=== PATIENT | male | born 1980 | race Caucasian/White ===

== ENCOUNTER 2018-04-16 13:08 | Emergency (ER) | payer MEDICAID ==
[2018-04-16] MEDS ORDERED: ONDANSETRON 4 MG/2 ML VIAL IVP ONE (13:23)
[2018-04-16] MEDS ORDERED: NS 1,000 ML IV ONE (13:23)
[2018-04-16] MEDS ORDERED: KETOROLAC 30 MG/1 ML SDV IVP ONE (13:23)
--- NOTE | 2018-04-16 13:27 | EDPHY ---
H & P Stated Complaint: abd pain Source: Patient Exam Limitations: No limitations - Personal History Current Tetanus/Diphtheria Vaccine: Yes - Medical/Surgical History Hx Asthma: No Hx Chronic Respiratory Disease: No Hx Diabetes: No Hx Cardiac Disease: No Hx Renal Disease: No Hx Cirrhosis: No Hx Alcoholism: No Hx HIV/AIDS: No Hx Splenectomy or Spleen Trauma: No - Family History Significant Family History: No pertinent family hx - Social History Smoking Status: Former smoker Alcohol Use: Sober Drug Use: None Time Seen by Provider: 04/16/18 13:15 HPI/ROS: CHIEF COMPLAINT: Right lower quadrant pain HISTORY OF PRESENT ILLNESS: The patient is a 38-year-old man who is here with his partner complaining of right lower quadrant pain that he noticed when he woke from sleep at 6:00 a.m. This morning. He states that it occasionally radiates to his anterior thigh as well. He states that yesterday he drove 6 her miles in a car and at that time had some weird sensation in his testicles like his underwear was riding of but was not. He does not have any testicular pain or numbness today. No back pain. No CVA pain. The pain is been somewhat constant. He tried to eat lunch but that he got nauseous. He states that he thought that he may be constipated so that he performed a "douche". Severity: Moderate Modifying factors: None REVIEW OF SYSTEMS: Constitutional: denies: chills, fever, recent illness, recent injury EENTM: denies: blurred vision, double vision, nose congestion Respiratory: denies: cough, shortness of breath Cardiac: denies: chest pain, irregular heart rate, lightheadedness, palpitations Gastrointestinal/Abdominal: See HPI denies: diarrhea, nausea, vomiting, blood streaked stools Genitourinary: denies: dysuria, frequency, hematuria, pain Musculoskeletal: denies: joint pain, muscle pain Skin: denies: lesions, rash, jaundice, bruising Neurological: denies: headache, numbness, paresthesia, tingling, dizziness, weakness Hematologic/Lymphatic: denies: blood clots, easy bleeding, easy bruising Immunologic/allergic: denies: HIV/AIDS, transplant 10 systems reviewed and negative except as noted EXAM: GENERAL: Well-appearing, well-nourished and in no acute distress. HEAD: Atraumatic, normocephalic. EYES: Pupils equal round and reactive to light, extraocular movements intact, sclera anicteric, conjunctiva are normal. ENT: TMs normal, nares patent, oropharynx clear without exudates. Moist mucous membranes. NECK: Normal range of motion, supple without lymphadenopathy or JVD. LUNGS: Breath sounds clear to auscultation bilaterally and equal. No wheezes rales or rhonchi. HEART: Regular rate and rhythm without murmurs, rubs or gallops. ABDOMEN: Soft, nontender, normoactive bowel sounds. No guarding, no rebound. No masses appreciated. : Normal testicular exam, no tenderness, no swelling, no palpable hernia. No discharge. BACK: No CVA tenderness, no spinal tenderness, step-offs or deformities EXTREMITIES: Normal range of motion, no pitting or edema. No clubbing or cyanosis. NEUROLOGICAL: Cranial nerves II through XII grossly intact. Normal speech, normal gait. 5/5 strength, normal movement in all extremities, normal sensation , normal reflexes PSYCH: Normal mood, normal affect. SKIN: Warm, dry, normal turgor, no visible rashes or lesions. (Gabriel Michael) Constitutional: Initial Vital Signs Temperature (C) 36.8 C 04/16/18 13:11 Heart Rate 95 04/16/18 13:11 Respiratory Rate 16 04/16/18 13:11 Blood Pressure 140/120 H 04/16/18 13:11 O2 Sat (%) 96 04/16/18 13:11 O2 Delivery Mode Room Air Allergies/Adverse Reactions: No Known Allergies Allergy (Unverified 04/16/18 13:11) Home Medications: Medication Instructions Recorded Amoxicillin/Clavulanate Pot 875 mg PO BID #14 tab 04/16/18 [Augmentin 875 MG TAB (*)] Herbals/Supplements -Info Only 1 ea PO DAILY 04/16/18 Nexium 20 mg PO DAILY 04/16/18 Medical Decision Making - Diagnostics Imaging: Discussed imaging studies w/ call or contact centre manager Radiologist - Diagnostics Imaging Results: Imaging Impressions Abdomen CT 04/16/18 13:23 Impression: 1. Consistent with early appendicitis 2. Nonobstructive solitary right nephrolith. Results discussed with Dr. Michael at 2:56 PM. General information for patients regarding this examination can be found at [email or web address]. If you have questions or comments about this report, please contact me at [phone] (hospital) or [phone] (cell). ED Course/Re-evaluation: I discussed the case with Dr. Parrish who will come to evaluate the patient. I discussed the case with the patient who is concerned. Will plan on admission and surgery. (Gabriel Michael) 1172: Dr. Parrish with General Surgery, has seen and evaluated the patient, does not feel this is acute appendicitis, Would like the patient to be discharged home. Dr. Parrish discussed his work up and ct imaging, he discussed with the patient about return precautions. Dr. Parrish's request patient to get Augmentin Rx Return precautions extensively discussed. Patient understands. Recommend close follow up and return if worsening abdominal pain, fever, vomiting. Close follow up with him tomorrow. Patient understands to return if worsening pain/fever/ vomiting/not doing well. (Jair Gomez) Differential Diagnosis: Partial list of the Differential diagnosis considered include but were not limited to; appendicitis, kidney stone, urinary tract infection, constipation and although unlikely based on the history and physical exam, I also considered perforation, ischemia. (Gabriel Michael) - Data Points Laboratory Results: Laboratory Results 04/16/18 13:25 04/16/18 13:25 04/16/18 04/16/18 04/16/18 13:40 13:25 13:25 WBC 11.23 10^3/uL H 10^3/uL (3.80-9.50) RBC 5.64 10^6/uL 10^6/uL (4.40-6.38) Hgb 15.6 g/dL g/dL (13.7-17.5) Hct 45.4 % % (40.0-51.0) MCV 80.5 fL L fL (81.5-99.8) MCH 27.7 pg L pg (27.9-34.1) MCHC 34.4 g/dL g/dL (32.4-36.7) RDW 12.8 % % (11.5-15.2) Plt Count 288 10^3/uL 10^3/uL (150-400) MPV 8.4 fL L fL (8.7-11.7) Neut % (Auto) 74.8 % H % (39.3-74.2) Lymph % (Auto) 19.4 % % (15.0-45.0) [place] % (Auto) 4.8 % % (4.5-13.0) Eos % (Auto) 0.4 % L % (0.6-7.6) Baso % (Auto) 0.2 % L % (0.3-1.7) Nucleat RBC Rel Count 0.0 % % (0.0-0.2) Absolute Neuts (auto) 8.39 10^3/uL H 10^3/uL (1.70-6.50) Absolute Lymphs (auto) 2.18 10^3/uL 10^3/uL (1.00-3.00) Absolute Monos (auto) 0.54 10^3/uL 10^3/uL (0.30-0.80) Absolute Eos (auto) 0.05 10^3/uL 10^3/uL (0.03-0.40) Absolute Basos (auto) 0.02 10^3/uL 10^3/uL (0.02-0.10) Absolute Nucleated RBC 0.00 10^3/uL 10^3/uL (0-0.01) Immature Gran % 0.4 % % (0.0-1.1) Immature Gran # 0.05 10^3/uL 10^3/uL (0.00-0.10) Sodium 139 mEq/L mEq/L (135-145) Potassium 3.8 mEq/L mEq/L (3.5-5.2) Chloride 108 mEq/L mEq/L (97-110) Carbon Dioxide 23 mEq/l mEq/l (22-31) Anion Gap 8 mEq/L mEq/L (6-14) BUN 14 mg/dL mg/dL (7-23) Creatinine 0.7 mg/dL mg/dL (0.7-1.3) Estimated GFR > 60 Glucose 108 mg/dL H mg/dL (70-100) Calcium 9.2 mg/dL mg/dL (8.5-10.4) Total Bilirubin 0.5 mg/dL mg/dL (0.1-1.4) Conjugated Bilirubin 0.2 mg/dL mg/dL (0.0-0.5) Unconjugated Bilirubin 0.3 mg/dL mg/dL (0.0-1.1) AST 27 IU/L IU/L (17-59) ALT 45 IU/L IU/L (21-72) Alkaline Phosphatase 105 IU/L IU/L (38-126) Total Protein 7.3 g/dL g/dL (6.3-8.2) Albumin 4.4 g/dL g/dL (3.5-5.0) Lipase 184 IU/L IU/L (23-300) Urine Color YELLOW Urine Appearance HAZY Urine pH 6.0 (5.0-7.5) Ur Specific [employer] 1.019 (1.002-1.030) Urine Protein NEGATIVE (NEGATIVE) Urine Ketones NEGATIVE (NEGATIVE) Urine Blood 3+ H (NEGATIVE) Urine Nitrate NEGATIVE (NEGATIVE) Urine Bilirubin NEGATIVE (NEGATIVE) Urine Urobilinogen NEGATIVE EU EU (0.2-1.0) Ur Leukocyte Esterase NEGATIVE (NEGATIVE) Urine RBC 50-182 /hpf H /hpf (0-3) Urine WBC 1-3 /hpf /hpf (0-3) Ur Epithelial Cells NONE SEEN /lpf /lpf (NONE-1+) Urine Mucus TRACE /lpf /lpf (NONE-1+) Urine Glucose NEGATIVE (NEGATIVE) Medications Given: Ceftriaxone Sodium/Dextrose (Rocephin 1 Gm (Premix)) 50 mls @ 100 mls/hr IV DAILY JAG PRN Reason: Protocol Stop: 05/16/18 15:29 Last Admin: 04/16/18 15:24 Dose: 50 mls Discontinued Medications Sodium Chloride (Ns) 1,000 mls @ 0 mls/hr IV EDNOW ONE; Wide Open PRN Reason: Protocol Stop: 04/16/18 13:24 Last Admin: 04/16/18 13:36 Dose: 1,000 mls Ketorolac Tromethamine (Toradol) 15 mg IVP EDNOW ONE Stop: 04/16/18 13:24 Last Admin: 04/16/18 13:38 Dose: 15 mg Ondansetron HCl (Zofran) 4 mg IVP EDNOW ONE Stop: 04/16/18 13:24 Last Admin: 04/16/18 13:37 Dose: 4 mg Departure - Departure Disposition: Home, Routine, Self-Care Clinical Impression: Abdominal pain Qualifiers: Abdominal location: unspecified location Qualified Code(s): R10.9 - Unspecified abdominal pain Condition: Good
[2018-04-16 13:41] LABS: PLATELET COUNT 288 10^3/uL (150-400)
[2018-04-16] MEDS ORDERED: IOPAMIDOL (ISOVUE-300) 100 ML BTL ONE (14:01)
[2018-04-16 16:51] VITALS: BP 143/80
[2018-04-16] MEDS ORDERED: metroNIDAZOLE 500 MG TAB PO SCH (22:00)
--- NOTE | 2018-04-17 04:22 | GCON ---
DATE OF CONSULTATION: 04/16/2018 REFERRING PHYSICIAN: Gabriel Michael MD REASON FOR EVALUATION: Rule out appendicitis. HISTORY OF PRESENT ILLNESS: 38-year-old healthy male presents to the emergency room today with a 1-day history of right groin pain. Symptoms started suddenly yesterday. He described an uncomfortable sensation, mostly in his groin, especially when sitting as his pants were rubbing up and down. He also noticed pain radiating toward his testicle and scrotal area. One quasi episode of similar pain in the past. Associated nausea x1 earlier today. No emesis. No fevers. No chills. Bowel movements have been somewhat constipated. He denies a history of known kidney stone disease. He denies a history of bloody urine. Car ride was not uncomfortable over bumps. He specifically denies abdominal pain at present time, rather mostly groin and the scrotal pain, as if his testicle is being twisted. PAST MEDICAL HISTORY: Benign heart palpitations, GERD. PAST SURGICAL HISTORY: Tonsillectomy with adenoidectomy. MEDICATION: Nexium. ALLERGIES: No known drug allergies. SOCIAL HISTORY: No alcohol. No tobacco. He presents with his partner, Ajith. PHYSICAL EXAM: VITAL SIGNS: Temperature 36.8, blood pressure 140/80, pulse 79 , respirations 18. GENERAL: Patient is alert, appropriate, comfortable, anicteric. LYMPHATIC: No cervical or supraclavicular lymphadenopathy. HEART: Regular. LUNGS: Clear. ABDOMEN: Soft, nontender right lower quadrant. Negative Rovsing sign. Negative obturator sign. Negative psoas sign. Normal right groins without hernias. GENITOURINARY: Normal bilateral testicles without torsion. Notable right cord tenderness without swelling. No inguinal adenopathy. LABORATORY DATA: White count 11, hemoglobin 16, platelets 290. Urinalysis 3+ blood with 50 to 150 red blood cells. No white cells. Electrolytes and liver enzymes within reference range. CT abdomen and pelvis reviewed with radiologist senior fire protection engineer. Mildly dilated appendix with subtle periappendiceal inflammatory changes with multiple surrounding lymph nodes, multiple right pelvic phleboliths, query possible distal ureteral stone. Nonobstructive right kidney stone. IMPRESSION: 1. Right groin pain. 2. Microscopic hematuria with CT evidence of nonobstructive nephrolithiasis with query distal ureter stone. 3. Mildly abnormal appendix. Patient's history and exam appear more consistent with microscopic hematuria and a possible passed distal ureteral stone, especially given the patient's groin and testicle complaints. He has a completely benign abdominal exam, and clinical history less consistent with appendicitis. Given abnormal CT findings , will allow patient to be discharged with oral antibiotics in case his findings do represent an early atypical case of appendicitis rather than stones. We discussed that should his symptoms continue to worsen, laparoscopy with appendectomy would be warranted at that time. If he continues to improve medically, he will follow up with his PCP when he returns back to [place] regarding his history of hematuria. Findings and recommendations were discussed with the patient and his fiancee in detail, as well as emergency room physician senior fire protection engineer. Followup contact information was provided, in addition to prescription for Augmentin. /[id number]/MODL MTDD
[2018-04-17] MEDS ORDERED: KETOROLAC 15 MG/1 ML SDV ONE (08:40)
--- NOTE | 2018-04-18 10:01 | PDCONSULT ---
Industrial Relations Representative Note: called to check in with patient yesterday at 8am (02/15) - he had opted to return to [facility] ER for check up for right back pain incidentally as I called. ED workup was felt more consistent with renal colic per discussion with ED MD - WBC was down to 5 at that time - patient was still without abdominal pain - we discussed continuing ABX trial for low suspicion appendicitis with main issue felt to be most consistent with renal colic (patient had not yet filled his Augmentin rx). spoke with patient (02/16) at 9am - no further abdominal complaints - one further back spasm last pinky - encouraged f/u with PCP when returns home to [place] - patient pleased with this plan. He knows to call or return with any questions or concerns.
== END 2018-04-16 16:51 | disposition home or self-care (01) ==
LOC: F3N 15:08 → UNDOADMOB 15:08 → F3N 16:14
DX: N20.0 Calculus of kidney (principal); Z87.891 Personal history of nicotine dependence
CPT/HCPCS: 96374; J0696; J1885; J2405; Q9967

== ENCOUNTER 2018-04-17 07:45 | Emergency (ER) | payer MEDICAID ==
--- NOTE | 2018-04-17 08:28 | EDPHY ---
H & P Time Seen by Provider: 04/17/18 08:03 HPI/ROS: CHIEF COMPLAINT: Right-sided flank pain HISTORY OF PRESENT ILLNESS: Patient was seen yesterday for similar symptoms which started at 6:00 a.[address] He had a CT scan which showed possibly enlarged appendix, right nephrolithiasis, possible distal right ureteral stone. He was seen in consultation by Dr. Parrish from General surgery, discharged with prescription for Augmentin. Patient presents with persistent symptoms including worse today at 6:00 a.m.. He says it is right flank and radiates down to his testicle. Sometimes includes is right lower quadrant but not always. Not associated with vomiting, he did have subjective chills last night. No urinary symptoms. Little bit of diarrhea yesterday. He did not take the Augmentin. Symptoms mild to moderate. Not associated with any worsening with movement. REVIEW OF SYSTEMS: Eye: no change in vision ENT: no sore throat Cardiac: no chest pain or syncope Pulmonary: no cough or SOB Abdomen: HPI Musculoskeletal: no back pain Skin: no rash Neuro: no headache Constitutional: no fever : HPI A comprehensive 10 point review of systems is otherwise negative aside from elements mentioned in the history of present illness. PAST MEDICAL HISTORY: Negative except for GERD, tonsillectomy Social history: Leaving for [place] tomorrow General Appearance: Alert and conversant, cooperative. Eyes: No scleral icterus. ENT, Mouth: Normal mucous membranes. Respiratory: Normal respiratory effort, breath sounds equal, lungs are clear to auscultation. Cardiovascular: Regular rate and rhythm. Gastrointestinal: Abdomen is soft and non tender. No McBurney's point tenderness. He can jump up and down in the room without any abdominal pain. Bowel sounds are present. Normal male with no evidence of hernia, no testicular swelling or other abnormality. Neurological: Alert, face symmetric, normal motor and sensory in extremities. Skin: Warm and dry, no rashes. Musculoskeletal: No peripheral edema. Psychiatric: Not agitated. Emergency Department course/MDM: 825: Discussed with Dr. Parrish, requests CBC. Clinically this is much more likely to be renal colic or muscular with normal abdominal exam, no change in symptoms with movement, afebrile, no abdominal pain at the time of my interview but mostly back and testicular symptoms currently. Does not appear likely perforation or aortic aneurysm or dissection. Renal infarct or other vascular or embolism considered but would be less likely especially given patient's age and lack of comorbidities. 907: Discussed with Francois, he recommended patient take Augmentin as prescribed and he will followup by phone tomorrow; no further treatment or diagnostics at this point. Does not recommend surgery at this time. Smoking Status: Former smoker Constitutional: Initial Vital Signs Temperature (C) 36.7 C 04/17/18 07:48 Heart Rate 70 04/17/18 07:48 Respiratory Rate 16 04/17/18 07:48 Blood Pressure 140/73 H 04/17/18 07:48 O2 Sat (%) 96 04/17/18 07:48 O2 Delivery Mode Room Air Allergies/Adverse Reactions: No Known Allergies Allergy (Unverified 04/17/18 07:47) Home Medications: Medication Instructions Recorded Amoxicillin/Clavulanate Pot 875 mg PO BID #14 tab 04/16/18 [Augmentin 875 MG TAB (*)] Herbals/Supplements -Info Only 1 ea PO DAILY 04/16/18 Nexium 20 mg PO DAILY 04/16/18 Medical Decision Making Differential Diagnosis: Differential considered including but not limited to renal colic, vascular including dissection or embolus, testicular torsion or tumor, appendicitis, hernia, bowel obstruction, aortic aneurysm, UTI - Data Points Laboratory Results: Laboratory Results 04/17/18 08:30 04/17/18 04/17/18 08:30 07:50 WBC 5.96 10^3/uL 10^3/uL (3.80-9.50) RBC 5.45 10^6/uL 10^6/uL (4.40-6.38) Hgb 15.0 g/dL g/dL (13.7-17.5) Hct 44.2 % % (40.0-51.0) MCV 81.1 fL L fL (81.5-99.8) MCH 27.5 pg L pg (27.9-34.1) MCHC 33.9 g/dL g/dL (32.4-36.7) RDW 12.9 % % (11.5-15.2) Plt Count 257 10^3/uL 10^3/uL (150-400) MPV 8.4 fL L fL (8.7-11.7) Neut % (Auto) 50.8 % % (39.3-74.2) Lymph % (Auto) 40.8 % % (15.0-45.0) [place] % (Auto) 6.4 % % (4.5-13.0) Eos % (Auto) 1.2 % % (0.6-7.6) Baso % (Auto) 0.5 % % (0.3-1.7) Nucleat RBC Rel Count 0.0 % % (0.0-0.2) Absolute Neuts (auto) 3.03 10^3/uL 10^3/uL (1.70-6.50) Absolute Lymphs (auto) 2.43 10^3/uL 10^3/uL (1.00-3.00) Absolute Monos (auto) 0.38 10^3/uL 10^3/uL (0.30-0.80) Absolute Eos (auto) 0.07 10^3/uL 10^3/uL (0.03-0.40) Absolute Basos (auto) 0.03 10^3/uL 10^3/uL (0.02-0.10) Absolute Nucleated RBC 0.00 10^3/uL 10^3/uL (0-0.01) Immature Gran % 0.3 % % (0.0-1.1) Immature Gran # 0.02 10^3/uL 10^3/uL (0.00-0.10) Urine Color YELLOW Urine Appearance CLEAR Urine pH 5.0 (5.0-7.5) Ur Specific [place] 1.023 (1.002-1.030) Urine Protein NEGATIVE (NEGATIVE) Urine Ketones NEGATIVE (NEGATIVE) Urine Blood 3+ H (NEGATIVE) Urine Nitrate NEGATIVE (NEGATIVE) Urine Bilirubin NEGATIVE (NEGATIVE) Urine Urobilinogen NEGATIVE EU EU (0.2-1.0) Ur Leukocyte Esterase NEGATIVE (NEGATIVE) Urine RBC 50-182 /hpf H /hpf (0-3) Urine WBC 1-3 /hpf /hpf (0-3) Ur Epithelial Cells NONE SEEN /lpf /lpf (NONE-1+) Urine Mucus TRACE /lpf /lpf (NONE-1+) Urine Glucose NEGATIVE (NEGATIVE) Medications Given: Discontinued Medications Acetaminophen (Tylenol) 650 mg PO EDNOW ONE Stop: 04/17/18 08:30 Last Admin: 04/17/18 09:13 Dose: Not Given Ibuprofen (Motrin) 600 mg PO EDNOW ONE Stop: 04/17/18 08:30 Last Admin: 04/17/18 08:49 Dose: Not Given Ketorolac Tromethamine (Toradol) 15 mg IVP EDNOW ONE Stop: 04/17/18 08:41 Last Admin: 04/17/18 08:42 Dose: 15 mg Departure - Departure Disposition: Home, Routine, Self-Care Clinical Impression: Acute right flank pain Condition: Good Instructions: Renal Colic (ED) Additional Instructions: Dr. Parrish recommends that you take the Augmentin prescribed. Oral ibuprofen 600 mg every 8 hr for pain over the next 48 hr. Please return if you get fever vomiting or worsening abdominal pain. Dr. Parrish will follow up with you in 24 hr by phone unless you are feeling worse and return to the ER before then. Year white blood cell count today was normal at 5.9, you still have microscopic amounts of blood in the urine. Referrals: Butch Parrish MD [Medical Doctor] - As per Instructions
[2018-04-17] MEDS ORDERED: IBUPROFEN 600 MG TAB PO ONE (08:29)
[2018-04-17] MEDS ORDERED: ACETAMINOPHEN 325 MG TAB PO ONE (08:29)
[2018-04-17] MEDS ORDERED: KETOROLAC 15 MG/1 ML SDV IVP ONE (08:40)
[2018-04-17 08:50] LABS: PLATELET COUNT 257 10^3/uL (150-400)
[2018-04-17 09:22] VITALS: BP 126/77
== END 2018-04-17 09:31 | disposition home or self-care (01) ==
DX: R10.9 Unspecified abdominal pain (principal); Z87.891 Personal history of nicotine dependence
CPT/HCPCS: 96374

== ENCOUNTER 2018-08-09 09:51 | Emergency (ER) | payer MEDICAID ==
--- NOTE | 2018-08-09 10:24 | EDPHY ---
General - History Smoking Status: Former smoker Time Seen by Provider: 08/09/18 10:23 Narrative: CLINICAL IMPRESSION: Left great toe pain, headache, lightheaded ASSESSMENT/PLAN: Patient is a 38-year-old male with a history of chronic back pain and migraines who presents to the emergency department with multiple complaints including acute left great toe pain, headache and lightheadedness. Patient is afebrile and not toxic-appearing, his neurological exam is grossly normal with no focal deficit. An ECG was obtained and revealed normal sinus rhythm with a rate of 87 , a Q-wave was noted in lead 3 however no other acute findings or evidence of ischemia. Troponin was 0. Laboratory studies were otherwise unremarkable, patient had near resolution of his symptoms after migraine cocktail. Query atypical migraine versus new use of CBD pills in regards to his headache and lightheadedness. No findings to suggest meningitis, encephalitis, SAH, CVA/TIA or vertebral dissection. In regards to his toe pain, there was no evidence of traumatic injury, fracture, dislocation, gout or septic joint. Patient does not have a primary care provider, I provided a referral for him and discussed that I would like him to be seen in the next 1-2 days. Return precautions discussed. DIFFERENTIAL DX: Differential diagnosis including but not limited to and in no particular order, migraine, atypical headache, CVA, TIA, vertigo, Meniere's. In regards to his toe pain, etiologies including but not limited to traumatic injury, gout, septic joint, fracture or dislocation. ED COURSE: 1047: ECG reviewed with Dr. Lewis, normal sinus rhythm with a heart rate of 87. Q-waves are noted in the inferior leads, no acute ST changes or evidence of acute ischemia. 1158: On repeat examination the patient is well-appearing, he was visualized walking to the bathroom. His neurological exam is grossly normal with no focal deficit. Still reports feeling intermittent dizzy episodes. 1253: On repeat examination the patient reports that he is feeling much better , he states that he just feels tired. He denies any further headache or feeling of lightheadedness. His neurological exam remained grossly normal with no focal deficit. I discussed the importance of close follow-up. CHIEF COMPLAINT: Left big toe pain, lightheaded HPI: Patient is a 38-year-old male with a history of chronic back pain and migraines who presents to the Emergency Department with sudden-onset left great toe pain followed by lightheadedness and headache. Patient reports he was standing in the bathroom, he bent his toe and a certain direction when he experienced a pop and sudden pain. About 15 sec later the patient reports feeling very lightheaded, this has been persistent symptoms. Since he has been in the emergency department he is now experiencing mild left-sided headache. He does have a history of migraines however states that this feels different. Patient endorses that he has been trialing a combination of CBD, marijuana chewables and other THC products for his ongoing back pain. He has been on a new CBD hemp pill for the last 5 days with improvement of his pain, denies any feelings of lightheadedness or headache up until today. Patient denies any significant dizziness, visual changes, focal weakness, numbness or tingling of extremities or ataxia. He denies any direct trauma. He denies any chest pain, he felt mildly short of breath when he was experiencing most pain. He denies any abdominal pain, urinary symptoms or change in bowel habits. PMH: Chronic back pain, migraines Family History: Noncontributory Social History: Former smoker, CBD and THC REVIEW OF SYSTEMS: All other systems negative Constitutional: No fever or chills. Eyes: No discharge, vision change ENT: No sore throat, congestion, ear pain. Cardiovascular: No chest pain, no palpitations. Respiratory: Short of breath. Gastrointestinal: No abdominal pain, no vomiting, diarrhea. Genitourinary: No hematuria, dysuria, flank pain. Musculoskeletal: Left great toe pain. No back pain. Skin: No rashes, color change. Neurological: Lightheaded, headache. No weakness. PHYSICAL EXAM: General Appearance: Alert, well-appearing, no acute distress. HENT: Normocephalic, atraumatic. Bilateral external ears are normal. Bilateral tympanic membranes are normal with pearly umana reflex. Nares are clear, mucosa is pink. Oropharynx is clear, uvula is midline. There is no tonsillar enlargement or exudate. Eyes: PERRLA, no acute vision change, nystagmus, swelling, discharge, pain or photosensitivity. Conjunctiva pink, no pallor or injection. Neck: Supple, nontender, no lymphadenopathy, no midline pain, FROM, no meningismus. Respiratory: There are no retractions, lungs are clear to auscultation. Cardiac: Regular rate and rhythm, no murmurs or gallops. Gastrointestinal: Abdomen is soft, nontender, bowel sounds normal, no masses/ hernia, no rigidity, guarding or focal peritoneal findings. Neurological: MENTAL STATUS: Patient is alert and oriented to person, place, time, and situation. Recent and remote memory are intact. Attention and concentration are normal. Found knowledge is appropriate to level of education. Mood and affect normal. SPEECH: Language including naming, repetition, comprehension, and spontaneous speech are normal. No dysarthria or dysphagia. CRANIAL NERVES: II: Visual garcia are full to confrontation. Vision is grossly intact. III, IV, : Pupils are equal, round, reactive to light. Extraocular eye movements are full and without nystagmus. V: Facial sensation is intact to touch symmetrically in all 3 divisions. VII: Face is symmetric at rest with no asymmetry of grimace or evidence of facial weakness. VIII: Hearing is intact bilaterally to finger rub. IX, X: Palate is midline and elevates symmetrically with intact cough/gag. XI: Sternocleidomastoid and trapezius strength is normal. XII: Tongue protrudes midline without atrophy or fasciculations. MOTOR: Normal bulk and tone symmetrically in the upper and lower extremities. Upper extremities: shoulder abduction, elbow flexion, elbow extension, flexion of fingers and finger abduction strength 5/5 bilaterally. Lower extremities: hip flexion, knee flexion and extension, plantar and dorsiflexion of foot, and great toe extension strength 5/5 bilaterally. No pronator drift. SENSORY: Sensation is intact to light touch and symmetric in the UE's in LE's bilaterally. Romberg is negative. COORDINATION: Fine motor and rapid alternating movements are normal. Finger to nose is normal bilaterally. [id number] is normal bilaterally. No abnormal movements noted. There is no tremor at rest or with posture or action. GAIT/STATION: Casual, straightforward gait is normal. Patient can walk on toes and on heels. No gait instability. Negative test of skew. No truncal or gait ataxia. NIH 0 Skin: Warm, dry, no rashes, no nodules on palpation. Musculoskeletal: Patient with tenderness to palpation along his generalized great toe and MCP. There was no erythema or calor. Patient with full range of motion, no pain with passive range of motion. Extremities are symmetrical, full range of motion, no deformity, swelling, or erythema. Psychiatric: Mood and affect are normal, there is no agitation. MEDICAL DECISION MAKING: Patient was seen independently. Secondary supervising physician at time of evaluation was Dr. Lewis. Diagnosis: Headache, lightheaded, left great toe pain. New, requires workup Summary: Patient is afebrile and nontoxic appearing, he is in no acute distress. His neurological exam is grossly normal with no focal deficit. NIH 0, negative test of skew and no truncal or gait ataxia. The onset was slow and progressive not sudden. There are no associated cranial nerve abnormalities and the patient has marked improvement with IV fluids, reglan, benadryl and toradol. I considered the other potentially dangerous causes including meningitis, encephalitis, subarachnoid hemorrhage, CVA/TIA and vertebral dissection however low clinical suspicion. His ECG showed no acute ischemia, troponin was negative , I do not suspect ACS, sepsis, vascular disease, CHF, arrhythmia (WPW, Bruggada Syndrome, prolonged QT, ventricular arrhythmia, SVT, bradyarrhythmia, or cardiac outflow obstruction- no murmur and not exertional in nature). There were no red flag symptoms, specifically, not exertional onset, no chest pain, dyspnea, low back pain, palpitations, severe headache, focal neurologic deficits , diplopia, ataxia, or dysarthria. I have a low clinical suspicion for other central nervous system etiology. He has had no recent trauma, seizure, change in vision, fever, or signs of meningismus. Plan is to continue to treat the patient symptomatically and follow up with PCP after an outpatient trial. No indication for admission, LP or imaging at this time. On re-examination and prior to discharge the patient's headache has markedly improved- near gone, he denies any further lightheadedness and his neurological examination is grossly normal. Referral given for PCP. Clinical lab tests: Yes. Independent visualization of images, tracing, or specimens: Yes. Decision to obtain medical records or history from someone other than the patient: No Review / Summarize previous medical records: Yes Discussed patient with another provider: Yes, Dr. Lewis Patient Progress: Stable, discharge. (Kamilla Latham) Medical Decision Making: I did not see this patient while he was in the emergency department. However his care was discussed with the PA while the patient was in the department. I agree with treatment plan and management (Montana Lewis) - Diagnostics EKG Interpretation: EKG interpreted by me shows normal sinus rhythm normal interval. Q-wave in lead 3. No significant ST elevation or depression. No arrhythmia. The rate is 87 (Montana Lewis) Imaging Results: Imaging Impressions Foot X-Ray 08/09/18 10:36 Impression: Negative. No acute fracture. - Objective Vital Signs: Initial Vital Signs Temperature (C) 36.8 C 08/09/18 10:01 Heart Rate 84 08/09/18 10:01 Respiratory Rate 18 08/09/18 10:01 Blood Pressure 125/93 H 08/09/18 10:01 O2 Sat (%) 94 08/09/18 10:01 O2 Delivery Mode Room Air Allergies/Adverse Reactions: No Known Allergies Allergy (Verified 08/09/18 09:59) Home Medications: Medication Instructions Recorded Cbd 08/09/18 Potassium Chloride 08/09/18 Thc 08/09/18 Zantac 08/09/18 Laboratory Results: Laboratory Results 08/09/18 10:55 08/09/18 10:55 08/09/18 08/09/18 08/09/18 11:05 10:55 10:55 WBC 5.88 10^3/uL 10^3/uL (3.80-9.50) RBC 5.48 10^6/uL 10^6/uL (4.40-6.38) Hgb 15.2 g/dL g/dL (13.7-17.5) Hct 43.7 % % (40.0-51.0) MCV 79.7 fL L fL (81.5-99.8) MCH 27.7 pg L pg (27.9-34.1) MCHC 34.8 g/dL g/dL (32.4-36.7) RDW 12.4 % % (11.5-15.2) Plt Count 258 10^3/uL 10^3/uL (150-400) MPV 8.5 fL L fL (8.7-11.7) Neut % (Auto) 55.7 % % (39.3-74.2) Lymph % (Auto) 36.9 % % (15.0-45.0) Barber % (Auto) 6.3 % % (4.5-13.0) Eos % (Auto) 0.5 % L % (0.6-7.6) Baso % (Auto) 0.3 % % (0.3-1.7) Nucleat RBC Rel Count 0.0 % % (0.0-0.2) Absolute Neuts (auto) 3.27 10^3/uL 10^3/uL (1.70-6.50) Absolute Lymphs (auto) 2.17 10^3/uL 10^3/uL (1.00-3.00) Absolute Monos (auto) 0.37 10^3/uL 10^3/uL (0.30-0.80) Absolute Eos (auto) 0.03 10^3/uL 10^3/uL (0.03-0.40) Absolute Basos (auto) 0.02 10^3/uL 10^3/uL (0.02-0.10) Absolute Nucleated RBC 0.00 10^3/uL 10^3/uL (0-0.01) Immature Gran % 0.3 % % (0.0-1.1) Immature Gran # 0.02 10^3/uL 10^3/uL (0.00-0.10) Sodium 140 mEq/L mEq/L (135-145) Potassium 3.8 mEq/L mEq/L (3.5-5.2) Chloride 106 mEq/L mEq/L (97-110) Carbon Dioxide 23 mEq/l mEq/l (22-31) Anion Gap 11 mEq/L mEq/L (6-14) BUN 12 mg/dL mg/dL (7-23) Creatinine 0.9 mg/dL mg/dL (0.7-1.3) Estimated GFR > 60 Glucose 104 mg/dL H mg/dL (70-100) Calcium 9.3 mg/dL mg/dL (8.5-10.4) POC Troponin I 0.00 ng/mL ng/mL (0.00-0.08) Medications Given: Discontinued Medications Diphenhydramine HCl (Benadryl Injection) 25 mg IVP EDNOW ONE Stop: 08/09/18 10:35 Last Admin: 08/09/18 12:19 Dose: 25 mg Sodium Chloride (Ns) 1,000 mls @ 0 mls/hr IV ONCE ONE PRN Reason: Wide Open Stop: 08/09/18 10:35 Last Admin: 08/09/18 10:59 Dose: 1,000 mls Ketorolac Tromethamine (Toradol) 30 mg IVP EDNOW ONE Stop: 08/09/18 10:37 Last Admin: 08/09/18 12:19 Dose: 30 mg Meclizine HCl (Meclizine Hcl) 25 mg PO EDNOW ONE Stop: 08/09/18 12:01 Last Admin: 08/09/18 12:23 Dose: Not Given Metoclopramide HCl (Reglan) 10 mg PO EDNOW ONE Stop: 08/09/18 10:36 Last Admin: 08/09/18 12:21 Dose: Not Given Metoclopramide HCl (Reglan Injection) 10 mg IVP EDNOW ONE Stop: 08/09/18 10:42 Last Admin: 08/09/18 12:19 Dose: 10 mg Point of Care Test Results: Chemistry 08/09/18 11:05 POC Troponin I 0.00 ng/mL ng/mL (0.00-0.08) Departure - Departure Disposition: Home, Routine, Self-Care Clinical Impression: Lightheaded Headache Qualifiers: Headache type: unspecified Headache chronicity pattern: acute headache Intractability: not intractable Qualified Code(s): R51 - Headache Toe pain Qualifiers: Laterality: left Qualified Code(s): M79.675 - Pain in left toe(s) Condition: Good Instructions: Acute Headache (ED), Lightheadedness (ED) Additional Instructions: DISCHARGE INSTRUCTIONS FROM YOUR PROVIDER Thank you for visiting our emergency department today. Please keep in mind that discharge from the emergency department does not mean that there is nothing wrong - it simply means that we have not identified an emergency condition that requires further evaluation or treatment in the hospital. You should always plan to follow up with primary care for re-evaluation of your condition in the next 1-2 days. It is imperative that you establish care with a primary care provider if you have not already done so. As we discussed, please avoid this CBD supplement that you have been using. This could possibly contributing to feeling lightheaded today. The exact cause of your headache was not identified. The tests we have performed are essentially normal. Serious causes of headache are still possible , therefore, you should return immediately for worsening pain, visual changes, mental status changes, fever, vomiting or any other concerns. If the pain persists tomorrow, you should return for a recheck. In addition, you should follow up with your doctor for a recheck in 2-3 days. Return to the emergency department for worsening lightheadedness, dizziness, worsening headache, ataxia, numbness or tingling of extremities, focal weakness or for any other concerning symptom. People present with illnesses and injuries in different ways, and it is always possible that we have missed something. Again, thank you for choosing our emergency department. We hope that you feel better. Referrals: Denise Umaña MD [Medical Doctor] - 1-2 days without fail
[2018-08-09] MEDS ORDERED: NS 1,000 ML IV ONE (10:34)
[2018-08-09] MEDS: KETOROLAC 30 MG/1 ML SDV IVP ONE ×2 (11:07→12:19)
[2018-08-09] MEDS: METOCLOPRAMIDE 10 MG/2 ML VIAL IVP ONE ×2 (11:08→12:19)
[2018-08-09] MEDS: METOCLOPRAMIDE 10 MG TAB PO ONE ×2 (11:08→12:21)
[2018-08-09 11:12] LABS: PLATELET COUNT 258 10^3/uL (150-400)
[2018-08-09] MEDS ORDERED: MECLIZINE HCL 25 MG TAB PO ONE (12:00)
[2018-08-09] MEDS ORDERED: METOCLOPRAMIDE 10 MG/2 ML VIAL ONE (12:14)
[2018-08-09] MEDS ORDERED: KETOROLAC 30 MG/1 ML SDV ONE (12:14)
[2018-08-09 12:51] VITALS: BP 136/77
--- NOTE | 2018-08-09 15:48 | CPEKG ---
Test Reason : OPEN Blood Pressure : / mmHG Vent. Rate : 087 BPM Atrial Rate : 083 BPM P-R Int : 165 ms QRS Dur : 106 ms QT Int : 358 ms P-R-T Axes : 023 013 026 degrees QTc Int : 431 ms Sinus rhythm Probable left atrial enlargement Inferior infarct, old Confirmed by Montana Lewis ([id number]) on 08/09/2018 3:48:15 PM Referred By: PHYSICIAN ED Confirmed By:Montana Lewis
== END 2018-08-09 13:00 | disposition home or self-care (01) ==
DX: R51 Headache (principal); M79.675 Pain in left toe(s); R42 Dizziness and giddiness; E86.9 Volume depletion, unspecified
CPT/HCPCS: 84484-ER; 96374; J1200; J1885; J2765